=== PATIENT | male | born 1950 | race Caucasian/White ===

== ENCOUNTER 2017-09-27 11:11 | Inpatient (IN) | payer MEDICARE, OTHER ==
[2017-09-27] MEDS: morphine 4 MG/ML VIAL IM (13:18)
[2017-09-27] MEDS: ONDANSETRON (ODT) 4 MG TAB ODT (13:18)
[2017-09-27 13:23] LABS: ADD MAN DIFF? NO
[2017-09-27 13:27] LABS: WHITE BLOOD COUNT 4.6 10^3/ul (4.8-10.8)
[2017-09-27 13:27] LABS: BASOPHIL # 0.1 10^3/ul (0.0-0.1); BASOPHILS % 1.1 % (0.0-2.0); EOSINOPHILS # 0.1 10^3/ul (0.0-0.5); EOSINOPHILS % 1.8 % (0.0-7.0); HEMATOCRIT 34.5 % (42.0-52.0); HEMOGLOBIN 11.2 g/dl (14.0-18.0); LYMPHOCYTES # 0.9 10^3/ul (0.8-2.9); LYMPHOCYTES % 20.2 % (15.0-51.0); MEAN CORPUSCULAR HEMOGLOBIN 29.1 pg (29.0-33.0); MEAN CORPUSCULAR HGB CONC 32.5 g/dl (32.0-37.0); MEAN CORPUSCULAR VOLUME 89.6 fl (82.0-101.0); MONOCYTE # 0.5 10^3/ul (0.3-0.9); MONOCYTES % 11.4 % (0.0-11.0); NEUTROPHILS % 65.3 % (39.0-77.0); PLATELET COUNT 213 10^3/UL (140-415); RED BLOOD COUNT 3.85 10^6/ul (4.70-6.10); RED CELL DISTRIBUTION WIDTH 16.5 % (11.5-14.5)
[2017-09-27 13:47] LABS: ALANINE AMINOTRANSFERASE 57 IU/L (13-69); ALBUMIN 4.5 g/dl (3.3-4.9); ALBUMIN/GLOBULIN RATIO 1.07; ALKALINE PHOSPHATASE 168 IU/L (42-121); ANION GAP 22 (8-16); ASPARTATE AMINO TRANSFERASE 82 IU/L (15-46); BLOOD UREA NITROGEN 43 mg/dl (7-20); CALCIUM 8.9 mg/dl (8.4-10.2); CARBON DIOXIDE 24 mmol/L (21-31); CHLORIDE 90 mmol/L (97-110); CREATININE 8.32 mg/dl (0.61-1.24); GLUCOSE 54 mg/dl (70-220); SODIUM 130 mmol/L (135-144); TOTAL PROTEIN 8.7 g/dl (6.1-8.1)
[2017-09-27 13:59] LABS: INR 0.97
[2017-09-27 14:00] LABS: PARTIAL THROMBOPLASTIN TIME 34.5 Sec (25.0-35.0); TROPONIN-I 0.014 ng/ml (0.00-0.12)
[2017-09-27 14:01] LABS: POTASSIUM 6.1 mmol/L (3.5-5.1)
[2017-09-27] MEDS: ALBUTEROL 0.5% (NEB) 2.5 MG/0.5 ML AMP INH (14:14)
[2017-09-27] MEDS: NA BICARBONATE 8.4% 50 ML SYG IV (14:48)
[2017-09-27] MEDS: NA POLYST SULFON 15 GM/60 ML BTL PO (14:48)
[2017-09-27] MEDS: CA CHLORIDE 10% 10 ML SYRINGE IV (14:48)
[2017-09-27] MEDS: morphine 4 MG/ML VIAL IV ×2 (16:27→22:55)
[2017-09-27] MEDS: ONDANSETRON 4 MG INJ IV (16:27)
[2017-09-27] MEDS ORDERED: ACETAMINOPHEN 325 MG TAB PO (17:30)
[2017-09-27] MEDS ORDERED: ONDANSETRON 4 MG INJ IV (17:30)
[2017-09-27] MEDS: HYDROmorphONE 0.5 MG/0.5 ML SYG IV (20:05)
[2017-09-28] MEDS ORDERED: ONDANSETRON 4 MG INJ IV (03:30)
[2017-09-28] MEDS: morphine 4 MG/ML VIAL IV ×2 (06:18→14:52)
[2017-09-28 08:26] LABS: ADD MAN DIFF? NO
[2017-09-28 08:29] LABS: BASOPHIL # 0.1 10^3/ul (0.0-0.1); EOSINOPHILS # 0.2 10^3/ul (0.0-0.5); EOSINOPHILS % 3.6 % (0.0-7.0); HEMATOCRIT 34.1 % (42.0-52.0); HEMOGLOBIN 10.9 g/dl (14.0-18.0); LYMPHOCYTES # 0.7 10^3/ul (0.8-2.9); LYMPHOCYTES % 14.7 % (15.0-51.0); MEAN CORPUSCULAR HEMOGLOBIN 29.1 pg (29.0-33.0); MEAN CORPUSCULAR VOLUME 90.9 fl (82.0-101.0); MONOCYTE # 0.7 10^3/ul (0.3-0.9); MONOCYTES % 14.7 % (0.0-11.0); NEUTROPHIL # 3.1 10^3/ul (1.6-7.5); NEUTROPHILS % 65.8 % (39.0-77.0); PLATELET COUNT 241 10^3/UL (140-415); RED BLOOD COUNT 3.75 10^6/ul (4.70-6.10)
[2017-09-28 08:29] LABS: WHITE BLOOD COUNT 4.8 10^3/ul (4.8-10.8)
[2017-09-28 08:39] LABS: HEMOGLOBIN A1C 4.6 % (0-5.9)
[2017-09-28 09:01] LABS: ALANINE AMINOTRANSFERASE 53 IU/L (13-69); ALBUMIN 4.6 g/dl (3.3-4.9); ALBUMIN/GLOBULIN RATIO 1.31; ALKALINE PHOSPHATASE 152 IU/L (42-121); ANION GAP 21 (8-16); ASPARTATE AMINO TRANSFERASE 54 IU/L (15-46); BLOOD UREA NITROGEN 28 mg/dl (7-20); CALCIUM 8.9 mg/dl (8.4-10.2); CARBON DIOXIDE 27 mmol/L (21-31); CHLORIDE 97 mmol/L (97-110); CHOL/HDL RATIO 2.2 RATIO; CHOLESTEROL 143 mg/dl (100-200); CREATININE 6.19 mg/dl (0.61-1.24); GLUCOSE 79 mg/dl (70-220); HDL CHOLESTEROL 65 mg/dl (30-78); LDL CHOLESTEROL,CALCULATED 60 mg/dl; MAGNESIUM 2.5 mg/dl (1.7-2.5); PHOSPHORUS 6.4 mg/dl (2.5-4.9); POTASSIUM 4.9 mmol/L (3.5-5.1); SODIUM 140 mmol/L (135-144); TOTAL PROTEIN 8.1 g/dl (6.1-8.1); TRIGLYCERIDES 91 mg/dl (0-149)
[2017-09-28 09:01] LABS: TROPONIN-I 0.027 ng/ml (0.00-0.12)
[2017-09-28] MEDS: ASPIRIN 81 MG TAB PO (09:08)
[2017-09-28] MEDS: NIFEdipine (XL) 30 MG TAB PO (09:08)
[2017-09-28] MEDS: BENAZEPRIL 10 MG TAB PO (09:08)
[2017-09-28] MEDS: HEPARIN 5,000 UNIT/0.5 ML VIAL SC ×2 (09:19→20:16)
[2017-09-28] MEDS ORDERED: ACETAMINOPHEN 325 MG TAB PO (11:00)
[2017-09-28] MEDS: hydrALAzine 20 MG INJ IV ×2 (11:11→15:46)
[2017-09-28] MEDS ORDERED: BENAZEPRIL 10 MG TAB PO (12:30)
[2017-09-28] MEDS ORDERED: NIFEdipine (XL) 30 MG TAB PO (12:30)
[2017-09-28] MEDS: METOPROLOL 25 MG TAB PO ×2 (12:40→20:06)
[2017-09-28] MEDS ORDERED: morphine 2 MG INJ IV (17:30)
[2017-09-28] MEDS: LABETALOL HCL 20MG INJ IV (17:47)
[2017-09-28] MEDS: morphine 2 MG INJ IV (20:05)
[2017-09-28] MEDS: HYDROCODONE/APAP (5/325) TAB PO (23:01)
[2017-09-29] MEDS: morphine 2 MG INJ IV ×4 (00:03→20:52)
[2017-09-29] MEDS: hydrALAzine 20 MG INJ IV ×2 (00:57→13:25)
[2017-09-29] MEDS: LABETALOL HCL 20MG INJ IV (02:30)
[2017-09-29 06:36] LABS: ADD MAN DIFF? NO
[2017-09-29 06:43] LABS: WHITE BLOOD COUNT 5.1 10^3/ul (4.8-10.8)
[2017-09-29 06:43] LABS: BASOPHIL # 0.1 10^3/ul (0.0-0.1); BASOPHILS % 1.2 % (0.0-2.0); EOSINOPHILS # 0.2 10^3/ul (0.0-0.5); EOSINOPHILS % 4.5 % (0.0-7.0); HEMATOCRIT 32.7 % (42.0-52.0); HEMOGLOBIN 10.4 g/dl (14.0-18.0); LYMPHOCYTES # 0.9 10^3/ul (0.8-2.9); LYMPHOCYTES % 17.3 % (15.0-51.0); MEAN CORPUSCULAR HEMOGLOBIN 29.4 pg (29.0-33.0); MEAN CORPUSCULAR HGB CONC 31.8 g/dl (32.0-37.0); MEAN CORPUSCULAR VOLUME 92.4 fl (82.0-101.0); MEAN PLATELET VOLUME 9.2 fl (7.4-10.4); MONOCYTE # 0.7 10^3/ul (0.3-0.9); MONOCYTES % 13.6 % (0.0-11.0); NEUTROPHIL # 3.2 10^3/ul (1.6-7.5); PLATELET COUNT 219 10^3/UL (140-415); RED BLOOD COUNT 3.54 10^6/ul (4.70-6.10); RED CELL DISTRIBUTION WIDTH 17.1 % (11.5-14.5)
[2017-09-29 07:03] LABS: ANION GAP 22 (8-16); BLOOD UREA NITROGEN 43 mg/dl (7-20); CALCIUM 9.3 mg/dl (8.4-10.2); CARBON DIOXIDE 28 mmol/L (21-31); CHLORIDE 94 mmol/L (97-110); CREATININE 8.63 mg/dl (0.61-1.24); GLUCOSE 89 mg/dl (70-220); MAGNESIUM 2.4 mg/dl (1.7-2.5); POTASSIUM 4.9 mmol/L (3.5-5.1); SODIUM 139 mmol/L (135-144)
[2017-09-29] MEDS: METOPROLOL 25 MG TAB PO ×2 (08:11→20:51)
[2017-09-29] MEDS: BENAZEPRIL 10 MG TAB PO (08:12)
[2017-09-29] MEDS: ASPIRIN 81 MG TAB PO (08:12)
[2017-09-29] MEDS: NIFEdipine (XL) 30 MG TAB PO (08:12)
[2017-09-29] MEDS: HEPARIN 5,000 UNIT/0.5 ML VIAL SC ×2 (08:13→20:57)
[2017-09-29] MEDS ORDERED: BENAZEPRIL 10 MG TAB PO (09:00)
[2017-09-29] MEDS: BENAZEPRIL 40 MG TAB PO (10:18)
[2017-09-30] MEDS: hydrALAzine 20 MG INJ IV ×2 (00:41→14:01)
[2017-09-30 06:05] LABS: ADD MAN DIFF? NO
[2017-09-30 06:16] LABS: BASOPHILS % 0.6 % (0.0-2.0); EOSINOPHILS # 0.2 10^3/ul (0.0-0.5); EOSINOPHILS % 2.8 % (0.0-7.0); HEMOGLOBIN 10.4 g/dl (14.0-18.0); LYMPHOCYTES % 14.4 % (15.0-51.0); MEAN CORPUSCULAR HEMOGLOBIN 29.5 pg (29.0-33.0); MEAN CORPUSCULAR HGB CONC 32.5 g/dl (32.0-37.0); MEAN CORPUSCULAR VOLUME 90.9 fl (82.0-101.0); MEAN PLATELET VOLUME 9.9 fl (7.4-10.4); MONOCYTES % 14.2 % (0.0-11.0); NEUTROPHIL # 4.6 10^3/ul (1.6-7.5); NEUTROPHILS % 67.7 % (39.0-77.0); PLATELET COUNT 222 10^3/UL (140-415); RED BLOOD COUNT 3.52 10^6/ul (4.70-6.10); RED CELL DISTRIBUTION WIDTH 17.2 % (11.5-14.5)
[2017-09-30 06:16] LABS: WHITE BLOOD COUNT 6.8 10^3/ul (4.8-10.8)
[2017-09-30 08:04] LABS: ANION GAP 25 (8-16); BLOOD UREA NITROGEN 68 mg/dl (7-20); CALCIUM 9.4 mg/dl (8.4-10.2); CARBON DIOXIDE 22 mmol/L (21-31); CHLORIDE 93 mmol/L (97-110); CREATININE 10.28 mg/dl (0.61-1.24); GLUCOSE 53 mg/dl (70-220); MAGNESIUM 2.3 mg/dl (1.7-2.5); PHOSPHORUS 8.1 mg/dl (2.5-4.9); POTASSIUM 5.5 mmol/L (3.5-5.1); SODIUM 134 mmol/L (135-144)
[2017-09-30] MEDS: ASPIRIN 81 MG TAB PO (08:15)
[2017-09-30] MEDS: morphine 2 MG INJ IV ×3 (08:17→13:14)
[2017-09-30] MEDS: HEPARIN 5,000 UNIT/0.5 ML VIAL SC (08:21)
[2017-09-30] MEDS: NIFEdipine (XL) 30 MG TAB PO (09:00)
[2017-09-30] MEDS: MULTIVIT/CA CARB/B CMPLX/FA TAB PO (09:00)
[2017-09-30] MEDS: BENAZEPRIL 40 MG TAB PO (09:00)
[2017-09-30] MEDS: METOPROLOL 50 MG TAB PO (09:00)
[2017-09-30] MEDS: MUPIROCIN 2% 22 GM OINT TOP ×2 (11:00→13:06)
[2017-09-30] MEDS: SEVELAMER 800 MG TAB PO ×2 (11:50→13:06)
[2017-09-30] MEDS ORDERED: EPOETIN 4000 UNITS/1 ML INJ (ESRD) SC (17:00)
== END 2017-09-30 15:38 | disposition home or self-care (01) | DRG 313 ==
LOC: TEL 17:15 → E/R 11:11
PROC: 5A1D70Z Performance of Urinary Filtration, Intermittent, Less than 6 Hours Per Day (ICD-10-PCS; principal; 2017-09-27)
DX: R07.9 Chest pain, unspecified (principal); N18.6 End stage renal disease; E87.1 Hypo-osmolality and hyponatremia; J81.1 Chronic pulmonary edema; I12.0 Hypertensive chronic kidney disease with stage 5 chronic kidney disease or end stage renal disease; M25.512 Pain in left shoulder; I16.0 Hypertensive urgency; D63.1 Anemia in chronic kidney disease; E11.22 Type 2 diabetes mellitus with diabetic chronic kidney disease; E11.65 Type 2 diabetes mellitus with hyperglycemia; E87.5 Hyperkalemia; E87.70 Fluid overload, unspecified; Z99.2 Dependence on renal dialysis; Z87.891 Personal history of nicotine dependence; Z79.4 Long term (current) use of insulin
CPT/HCPCS: 71045; 73030; 80048; 80053; 80061; 82962; 83036; 83735; 84100; 84443; 84484; 85025; 85610; 85730; 87081; 90935; 93005; 93931; 94664; 96374; 96375; 96376; 99291-25

== ENCOUNTER 2017-10-08 19:03 | Inpatient (IN) | payer MEDICARE, OTHER ==
[2017-10-09 00:39] LABS: ADD MAN DIFF? NO
[2017-10-09 00:41] LABS: BASOPHILS % 0.6 % (0.0-2.0); EOSINOPHILS # 0.2 10^3/ul (0.0-0.5); EOSINOPHILS % 2.4 % (0.0-7.0); HEMATOCRIT 28.4 % (42.0-52.0); HEMOGLOBIN 9.3 g/dl (14.0-18.0); LYMPHOCYTES # 0.9 10^3/ul (0.8-2.9); LYMPHOCYTES % 13.5 % (15.0-51.0); MEAN CORPUSCULAR HEMOGLOBIN 29.4 pg (29.0-33.0); MEAN CORPUSCULAR HGB CONC 32.7 g/dl (32.0-37.0); MEAN CORPUSCULAR VOLUME 89.9 fl (82.0-101.0); MEAN PLATELET VOLUME 9.8 fl (7.4-10.4); MONOCYTE # 1.3 10^3/ul (0.3-0.9); MONOCYTES % 18.3 % (0.0-11.0); NEUTROPHIL # 4.5 10^3/ul (1.6-7.5); NEUTROPHILS % 64.9 % (39.0-77.0); PLATELET COUNT 237 10^3/UL (140-415); RED BLOOD COUNT 3.16 10^6/ul (4.70-6.10); RED CELL DISTRIBUTION WIDTH 16.1 % (11.5-14.5)
[2017-10-09 01:05] LABS: LACTIC ACID 0.7 mmol/L (0.5-2.0)
[2017-10-09 01:07] LABS: ALANINE AMINOTRANSFERASE 24 IU/L (13-69); ALBUMIN/GLOBULIN RATIO 1.29; ALKALINE PHOSPHATASE 116 IU/L (42-121); ANION GAP 23 (8-16); ASPARTATE AMINO TRANSFERASE 31 IU/L (15-46); BLOOD UREA NITROGEN 83 mg/dl (7-20); CARBON DIOXIDE 22 mmol/L (21-31); CHLORIDE 89 mmol/L (97-110); GLUCOSE 104 mg/dl (70-220); POTASSIUM 5.2 mmol/L (3.5-5.1); SODIUM 129 mmol/L (135-144); TOTAL PROTEIN 7.1 g/dl (6.1-8.1)
[2017-10-09 01:17] LABS: CREATININE 11.58 mg/dl (0.61-1.24); TROPONIN-I 0.028 ng/ml (0.00-0.12)
[2017-10-09 01:19] LABS: INR 1.16; PT RATIO 1.2
[2017-10-09 01:20] LABS: PARTIAL THROMBOPLASTIN TIME 39.3 Sec (25.0-35.0)
[2017-10-09] MEDS: SODIUM CHLORIDE 1 GM TAB PO (02:22)
[2017-10-09] MEDS ORDERED: NACL 0.9% 3 ML SYG IV (02:30)
[2017-10-09] MEDS ORDERED: ALBUTEROL/IPRATROPIUM (NEB) 3 ML AMP HHN (02:30)
[2017-10-09] MEDS ORDERED: ONDANSETRON 4 MG INJ IV (02:30)
[2017-10-09] MEDS ORDERED: VANCOMYCIN IV PER PHARMACY XX (02:30)
[2017-10-09 02:56] LABS: LACTIC ACID 0.7 mmol/L (0.5-2.0)
[2017-10-09] MEDS: NIFEdipine (XL) 30 MG TAB PO ×2 (03:30→08:55)
[2017-10-09] MEDS: METOPROLOL 50 MG TAB PO ×3 (03:30→21:00)
[2017-10-09] MEDS: VANCOMYCIN 2 GM in SOD CHLORIDE 0.9% 500 ML IVPB (05:18)
[2017-10-09] MEDS: morphine 2 MG INJ IV (06:03)
[2017-10-09 06:54] LABS: ADD MAN DIFF? NO
[2017-10-09 07:00] LABS: WHITE BLOOD COUNT 5.8 10^3/ul (4.8-10.8)
[2017-10-09 07:00] LABS: BASOPHILS % 0.7 % (0.0-2.0); EOSINOPHILS # 0.2 10^3/ul (0.0-0.5); EOSINOPHILS % 3.3 % (0.0-7.0); HEMATOCRIT 27.4 % (42.0-52.0); LYMPHOCYTES % 16.8 % (15.0-51.0); MEAN CORPUSCULAR HEMOGLOBIN 29.7 pg (29.0-33.0); MEAN CORPUSCULAR HGB CONC 32.8 g/dl (32.0-37.0); MEAN CORPUSCULAR VOLUME 90.4 fl (82.0-101.0); MEAN PLATELET VOLUME 10.7 fl (7.4-10.4); MONOCYTES % 17.6 % (0.0-11.0); NEUTROPHIL # 3.5 10^3/ul (1.6-7.5); NEUTROPHILS % 61.3 % (39.0-77.0); PLATELET COUNT 224 10^3/UL (140-415); RED BLOOD COUNT 3.03 10^6/ul (4.70-6.10); RED CELL DISTRIBUTION WIDTH 16.2 % (11.5-14.5)
[2017-10-09 07:15] LABS: LACTIC ACID 0.7 mmol/L (0.5-2.0)
[2017-10-09 07:21] LABS: IRON 38 ug/dl (35-150)
[2017-10-09 07:32] LABS: % IRON SATURATION 22 % SAT (22-52); TOTAL IRON BINDING CAPACITY 173 ug/dl (241-421)
[2017-10-09] MEDS ORDERED: PENDING SANTYL ORDER FOR WOUND CARE XX (08:00)
[2017-10-09 08:35] LABS: ANION GAP 21 (8-16); BLOOD UREA NITROGEN 83 mg/dl (7-20); CALCIUM 9.2 mg/dl (8.4-10.2); CARBON DIOXIDE 24 mmol/L (21-31); CHLORIDE 91 mmol/L (97-110); GLUCOSE 102 mg/dl (70-220); MAGNESIUM 2.5 mg/dl (1.7-2.5); PHOSPHORUS 6.8 mg/dl (2.5-4.9); POTASSIUM 5.4 mmol/L (3.5-5.1); SODIUM 131 mmol/L (135-144)
[2017-10-09 08:49] LABS: CREATININE 11.81 mg/dl (0.61-1.24)
[2017-10-09] MEDS: HEPARIN 5,000 UNIT/0.5 ML VIAL SC ×2 (08:55→21:00)
[2017-10-09] MEDS: traMADol 50 MG TAB PO (08:55)
[2017-10-09] MEDS: MULTIVIT/CA CARB/B CMPLX/FA TAB PO (08:56)
[2017-10-09] MEDS: BENAZEPRIL 40 MG TAB PO (08:56)
[2017-10-09] MEDS: SEVELAMER 800 MG TAB PO ×3 (09:00→17:46)
[2017-10-09] MEDS: EPOETIN 4000 UNITS/1 ML INJ (ESRD) SC (18:51)
[2017-10-09] MEDS: LACTOBACILLUS RHAMNOSUS CAP PO (21:00)
[2017-10-10] MEDS: LACTOBACILLUS RHAMNOSUS CAP PO ×3 (00:43→20:52)
[2017-10-10] MEDS: OXYMETAZOLINE 0.05% 15 ML NAS SPRAY NASAL ×3 (00:43→20:53)
[2017-10-10] MEDS: METOPROLOL 50 MG TAB PO ×3 (00:47→20:53)
[2017-10-10] MEDS: HEPARIN 5,000 UNIT/0.5 ML VIAL SC ×3 (00:51→20:56)
[2017-10-10 06:32] LABS: ADD MAN DIFF? NO
[2017-10-10 06:38] LABS: BASOPHIL # 0.1 10^3/ul (0.0-0.1); EOSINOPHILS # 0.2 10^3/ul (0.0-0.5); EOSINOPHILS % 4.3 % (0.0-7.0); HEMATOCRIT 27.2 % (42.0-52.0); LYMPHOCYTES # 0.8 10^3/ul (0.8-2.9); LYMPHOCYTES % 15.5 % (15.0-51.0); MEAN CORPUSCULAR HEMOGLOBIN 29.4 pg (29.0-33.0); MEAN CORPUSCULAR HGB CONC 33.1 g/dl (32.0-37.0); MEAN CORPUSCULAR VOLUME 88.9 fl (82.0-101.0); MEAN PLATELET VOLUME 10.6 fl (7.4-10.4); MONOCYTE # 0.7 10^3/ul (0.3-0.9); MONOCYTES % 14.3 % (0.0-11.0); NEUTROPHIL # 3.3 10^3/ul (1.6-7.5); NEUTROPHILS % 64.7 % (39.0-77.0); PLATELET COUNT 245 10^3/UL (140-415); RED BLOOD COUNT 3.06 10^6/ul (4.70-6.10); RED CELL DISTRIBUTION WIDTH 16.1 % (11.5-14.5)
[2017-10-10 06:38] LABS: WHITE BLOOD COUNT 5.1 10^3/ul (4.8-10.8)
[2017-10-10 06:56] LABS: URIC ACID 4.4 mg/dl (3.1-7.9)
[2017-10-10 07:06] LABS: ALANINE AMINOTRANSFERASE 26 IU/L (13-69); ALBUMIN 3.5 g/dl (3.3-4.9); ALBUMIN/GLOBULIN RATIO 0.87; ALKALINE PHOSPHATASE 112 IU/L (42-121); ANION GAP 19 (8-16); ASPARTATE AMINO TRANSFERASE 26 IU/L (15-46); BLOOD UREA NITROGEN 52 mg/dl (7-20); CARBON DIOXIDE 25 mmol/L (21-31); CHLORIDE 96 mmol/L (97-110); CREATININE 8.99 mg/dl (0.61-1.24); GLUCOSE 91 mg/dl (70-220); MAGNESIUM 2.2 mg/dl (1.7-2.5); PHOSPHORUS 5.3 mg/dl (2.5-4.9); POTASSIUM 4.5 mmol/L (3.5-5.1); SODIUM 135 mmol/L (135-144); TOTAL PROTEIN 7.5 g/dl (6.1-8.1)
[2017-10-10 07:36] LABS: HEPATITIS B SURFACE ANTIGEN NEGATIVE (NEGATIVE)
[2017-10-10 07:47] LABS: HEMOGLOBIN A1C 4.7 % (0-5.9)
[2017-10-10] MEDS: MULTIVIT/CA CARB/B CMPLX/FA TAB PO (08:30)
[2017-10-10] MEDS: BENAZEPRIL 40 MG TAB PO (08:31)
[2017-10-10] MEDS: SEVELAMER 800 MG TAB PO ×3 (08:31→19:09)
[2017-10-10] MEDS: NIFEdipine (XL) 30 MG TAB PO (08:31)
[2017-10-10 09:09] LABS: HEPATITIS B SURFACE ANTIBODY NEGATIVE (NEGATIVE)
[2017-10-10] MEDS: hydrALAzine 20 MG INJ IV (13:53)
[2017-10-10] MEDS: traMADol 50 MG TAB PO (19:09)
[2017-10-11] MEDS: traMADol 50 MG TAB PO (01:23)
[2017-10-11 05:47] LABS: ADD MAN DIFF? NO
[2017-10-11 05:51] LABS: BASOPHIL # 0.1 10^3/ul (0.0-0.1); BASOPHILS % 0.9 % (0.0-2.0); EOSINOPHILS # 0.2 10^3/ul (0.0-0.5); HEMATOCRIT 26.6 % (42.0-52.0); HEMOGLOBIN 8.7 g/dl (14.0-18.0); LYMPHOCYTES # 0.8 10^3/ul (0.8-2.9); LYMPHOCYTES % 14.4 % (15.0-51.0); MEAN CORPUSCULAR HEMOGLOBIN 28.9 pg (29.0-33.0); MEAN CORPUSCULAR HGB CONC 32.7 g/dl (32.0-37.0); MEAN CORPUSCULAR VOLUME 88.4 fl (82.0-101.0); MEAN PLATELET VOLUME 10.2 fl (7.4-10.4); MONOCYTE # 0.8 10^3/ul (0.3-0.9); MONOCYTES % 15.3 % (0.0-11.0); NEUTROPHIL # 3.5 10^3/ul (1.6-7.5); NEUTROPHILS % 66.2 % (39.0-77.0); PLATELET COUNT 251 10^3/UL (140-415); RED BLOOD COUNT 3.01 10^6/ul (4.70-6.10); RED CELL DISTRIBUTION WIDTH 16.1 % (11.5-14.5)
[2017-10-11 05:51] LABS: WHITE BLOOD COUNT 5.3 10^3/ul (4.8-10.8)
[2017-10-11 06:12] LABS: ANION GAP 18 (8-16); BLOOD UREA NITROGEN 43 mg/dl (7-20); CALCIUM 9.1 mg/dl (8.4-10.2); CARBON DIOXIDE 27 mmol/L (21-31); CHLORIDE 98 mmol/L (97-110); CREATININE 7.19 mg/dl (0.61-1.24); GLUCOSE 140 mg/dl (70-220); MAGNESIUM 2.2 mg/dl (1.7-2.5); PHOSPHORUS 3.8 mg/dl (2.5-4.9); POTASSIUM 3.7 mmol/L (3.5-5.1); SODIUM 139 mmol/L (135-144)
[2017-10-11 06:15] LABS: VANCOMYCIN,RANDOM 10.7 ug/ml
[2017-10-11] MEDS: hydrALAzine 20 MG INJ IV ×2 (07:41→22:44)
[2017-10-11] MEDS: LACTOBACILLUS RHAMNOSUS CAP PO ×2 (09:04→20:59)
[2017-10-11] MEDS: MULTIVIT/CA CARB/B CMPLX/FA TAB PO (09:04)
[2017-10-11] MEDS: SEVELAMER 800 MG TAB PO ×3 (09:04→17:48)
[2017-10-11] MEDS: HEPARIN 5,000 UNIT/0.5 ML VIAL SC ×2 (09:04→21:05)
[2017-10-11] MEDS: OXYMETAZOLINE 0.05% 15 ML NAS SPRAY NASAL ×2 (09:04→21:00)
[2017-10-11] MEDS: NIFEdipine (XL) 30 MG TAB PO (09:05)
[2017-10-11] MEDS: METOPROLOL 50 MG TAB PO ×2 (09:06→20:59)
[2017-10-11] MEDS: BENAZEPRIL 40 MG TAB PO (09:06)
[2017-10-11] MEDS: VANCOMYCIN 1.25 GM in SOD CHLORIDE 0.9% 250 ML IVPB (12:16)
[2017-10-11] MEDS: EPOETIN 4000 UNITS/1 ML INJ (ESRD) SC (17:58)
[2017-10-12] MEDS: hydrALAzine 20 MG INJ IV ×2 (06:14→15:58)
[2017-10-12] MEDS: MULTIVIT/CA CARB/B CMPLX/FA TAB PO (08:44)
[2017-10-12] MEDS: LACTOBACILLUS RHAMNOSUS CAP PO ×2 (08:44→20:06)
[2017-10-12] MEDS: METOPROLOL 50 MG TAB PO ×2 (08:45→20:06)
[2017-10-12] MEDS: NIFEdipine (XL) 30 MG TAB PO (08:45)
[2017-10-12] MEDS: OXYMETAZOLINE 0.05% 15 ML NAS SPRAY NASAL ×2 (08:45→20:06)
[2017-10-12] MEDS: BENAZEPRIL 40 MG TAB PO (08:46)
[2017-10-12] MEDS: ACETAMINOPHEN 325 MG TAB PO (08:56)
[2017-10-12] MEDS: SEVELAMER 800 MG TAB PO ×3 (08:56→17:41)
[2017-10-12] MEDS: HEPARIN 5,000 UNIT/0.5 ML VIAL SC ×2 (09:00→20:12)
[2017-10-13] MEDS: ACETAMINOPHEN 325 MG TAB PO ×2 (01:10→11:20)
[2017-10-13] MEDS: SEVELAMER 800 MG TAB PO ×3 (08:07→17:38)
[2017-10-13] MEDS: LACTOBACILLUS RHAMNOSUS CAP PO ×2 (08:07→20:48)
[2017-10-13] MEDS: MULTIVIT/CA CARB/B CMPLX/FA TAB PO (08:07)
[2017-10-13] MEDS: BENAZEPRIL 40 MG TAB PO (08:07)
[2017-10-13] MEDS: OXYMETAZOLINE 0.05% 15 ML NAS SPRAY NASAL ×2 (08:08→21:00)
[2017-10-13] MEDS: METOPROLOL 50 MG TAB PO ×2 (08:08→20:48)
[2017-10-13] MEDS: NIFEdipine (XL) 30 MG TAB PO (08:09)
[2017-10-13] MEDS: HEPARIN 5,000 UNIT/0.5 ML VIAL SC ×2 (08:31→20:53)
[2017-10-14] MEDS: traMADol 50 MG TAB PO (05:02)
[2017-10-14 05:37] LABS: ADD MAN DIFF? NO
[2017-10-14 05:46] LABS: WHITE BLOOD COUNT 6.9 10^3/ul (4.8-10.8)
[2017-10-14 05:46] LABS: BASOPHIL # 0.1 10^3/ul (0.0-0.1); BASOPHILS % 1.2 % (0.0-2.0); EOSINOPHILS # 0.3 10^3/ul (0.0-0.5); EOSINOPHILS % 4.7 % (0.0-7.0); HEMATOCRIT 29.6 % (42.0-52.0); HEMOGLOBIN 9.4 g/dl (14.0-18.0); LYMPHOCYTES # 1.2 10^3/ul (0.8-2.9); LYMPHOCYTES % 17.8 % (15.0-51.0); MEAN CORPUSCULAR HEMOGLOBIN 28.9 pg (29.0-33.0); MEAN CORPUSCULAR HGB CONC 31.8 g/dl (32.0-37.0); MEAN CORPUSCULAR VOLUME 91.1 fl (82.0-101.0); MEAN PLATELET VOLUME 9.4 fl (7.4-10.4); MONOCYTE # 0.7 10^3/ul (0.3-0.9); MONOCYTES % 10.6 % (0.0-11.0); NEUTROPHIL # 4.5 10^3/ul (1.6-7.5); NEUTROPHILS % 65.4 % (39.0-77.0); PLATELET COUNT 272 10^3/UL (140-415); RED BLOOD COUNT 3.25 10^6/ul (4.70-6.10); RED CELL DISTRIBUTION WIDTH 16.5 % (11.5-14.5)
[2017-10-14 06:23] LABS: ANION GAP 16 (8-16); BLOOD UREA NITROGEN 56 mg/dl (7-20); CALCIUM 9.9 mg/dl (8.4-10.2); CARBON DIOXIDE 24 mmol/L (21-31); CHLORIDE 101 mmol/L (97-110); CREATININE 9.91 mg/dl (0.61-1.24); GLUCOSE 95 mg/dl (70-220); MAGNESIUM 2.4 mg/dl (1.7-2.5); PHOSPHORUS 4.2 mg/dl (2.5-4.9); POTASSIUM 4.4 mmol/L (3.5-5.1); SODIUM 137 mmol/L (135-144)
[2017-10-14 06:25] LABS: VANCOMYCIN,RANDOM 16.3 ug/ml
[2017-10-14] MEDS: LACTOBACILLUS RHAMNOSUS CAP PO ×2 (08:59→21:00)
[2017-10-14] MEDS: OXYMETAZOLINE 0.05% 15 ML NAS SPRAY NASAL ×2 (08:59→21:02)
[2017-10-14] MEDS: SEVELAMER 800 MG TAB PO ×3 (09:01→18:14)
[2017-10-14] MEDS: MULTIVIT/CA CARB/B CMPLX/FA TAB PO (09:01)
[2017-10-14] MEDS: METOPROLOL 50 MG TAB PO ×2 (09:01→21:02)
[2017-10-14] MEDS: HEPARIN 5,000 UNIT/0.5 ML VIAL SC ×2 (09:03→21:05)
[2017-10-14] MEDS: NIFEdipine (XL) 30 MG TAB PO (12:26)
[2017-10-14] MEDS: BENAZEPRIL 40 MG TAB PO (13:42)
[2017-10-14] MEDS: hydrALAzine 20 MG INJ IV (14:41)
[2017-10-14] MEDS: VANCOMYCIN 1 GM 250 ML IVPB (18:14)
[2017-10-14] MEDS: EPOETIN 4000 UNITS/1 ML INJ (ESRD) SC (18:16)
[2017-10-15] MEDS: HEPARIN 5,000 UNIT/0.5 ML VIAL SC ×2 (08:59→20:46)
[2017-10-15] MEDS: SEVELAMER 800 MG TAB PO ×3 (09:01→18:16)
[2017-10-15] MEDS: MULTIVIT/CA CARB/B CMPLX/FA TAB PO (09:01)
[2017-10-15] MEDS: LACTOBACILLUS RHAMNOSUS CAP PO ×2 (09:01→20:43)
[2017-10-15] MEDS: NIFEdipine (XL) 30 MG TAB PO (09:02)
[2017-10-15] MEDS: BENAZEPRIL 40 MG TAB PO (09:03)
[2017-10-15] MEDS: METOPROLOL 50 MG TAB PO ×2 (09:03→20:44)
[2017-10-15] MEDS: OXYMETAZOLINE 0.05% 15 ML NAS SPRAY NASAL ×2 (09:06→20:44)
[2017-10-15] MEDS: ACETAMINOPHEN 325 MG TAB PO (20:51)
[2017-10-16] MEDS: hydrALAzine 20 MG INJ IV (02:35)
[2017-10-16 07:12] LABS: HEMOGLOBIN 9.1 g/dl (14.0-18.0)
[2017-10-16 07:12] LABS: HEMATOCRIT 28.9 % (42.0-52.0)
[2017-10-16] MEDS: LACTOBACILLUS RHAMNOSUS CAP PO (08:19)
[2017-10-16] MEDS: MULTIVIT/CA CARB/B CMPLX/FA TAB PO (08:19)
[2017-10-16] MEDS: SEVELAMER 800 MG TAB PO ×2 (08:19→12:04)
[2017-10-16] MEDS: OXYMETAZOLINE 0.05% 15 ML NAS SPRAY NASAL (08:21)
[2017-10-16] MEDS: HEPARIN 5,000 UNIT/0.5 ML VIAL SC (08:21)
[2017-10-16] MEDS: BENAZEPRIL 40 MG TAB PO (08:31)
[2017-10-16] MEDS: NIFEdipine (XL) 30 MG TAB PO (08:31)
[2017-10-16] MEDS: METOPROLOL 50 MG TAB PO (08:31)
[2017-10-18] MEDS ORDERED: VANCOMYCIN 1 GM 250 ML IVPB (17:00)
== END 2017-10-16 16:30 | DRG 871 ==
LOC: E/R 19:03 → MS2 10-14 09:39
PROC: 5A1D70Z Performance of Urinary Filtration, Intermittent, Less than 6 Hours Per Day (ICD-10-PCS; principal; 2017-10-11)
DX: A41.9 Sepsis, unspecified organism (principal); N18.6 End stage renal disease; S82.001A Unspecified fracture of right patella, initial encounter for closed fracture; L03.116 Cellulitis of left lower limb; I13.2 Hypertensive heart and chronic kidney disease with heart failure and with stage 5 chronic kidney disease, or end stage renal disease; E87.1 Hypo-osmolality and hyponatremia; E11.52 Type 2 diabetes mellitus with diabetic peripheral angiopathy with gangrene; I96 Gangrene, not elsewhere classified; L03.115 Cellulitis of right lower limb; E11.42 Type 2 diabetes mellitus with diabetic polyneuropathy; E11.22 Type 2 diabetes mellitus with diabetic chronic kidney disease; E11.610 Type 2 diabetes mellitus with diabetic neuropathic arthropathy; Z99.2 Dependence on renal dialysis; I50.9 Heart failure, unspecified; I16.0 Hypertensive urgency; D63.1 Anemia in chronic kidney disease; B95.62 Methicillin resistant Staphylococcus aureus infection as the cause of diseases classified elsewhere; R29.6 Repeated falls; E11.621 Type 2 diabetes mellitus with foot ulcer; L89.899 Pressure ulcer of other site, unspecified stage; L97.521 Non-pressure chronic ulcer of other part of left foot limited to breakdown of skin; I87.8 Other specified disorders of veins; E87.5 Hyperkalemia; Z83.3 Family history of diabetes mellitus; Z82.49 Family history of ischemic heart disease and other diseases of the circulatory system; Z89.422 Acquired absence of other left toe(s); Z87.891 Personal history of nicotine dependence; X58.XXXA Exposure to other specified factors, initial encounter
CPT/HCPCS: 36415; 71045; 73560; 73718; 80048; 80053; 80202; 82728; 83036; 83540; 83605; 83735; 84100; 84443; 84484; 84560; 85014; 85018; 85025; 85610; 85730; 86706; 87040; 87070; 87081; 87340; 90935; 93005; 93922; 93931; 97110; 97163; 97530; 99285-25

== ENCOUNTER 2018-01-20 09:37 | Inpatient (IN) | payer MEDICARE, OTHER ==
[2018-01-20] MEDS: morphine 4 MG/ML VIAL IM (10:47)
[2018-01-20] MEDS: ONDANSETRON 4 MG TAB PO (10:47)
[2018-01-20] MEDS: DEXAMETHASONE 10 MG/ML 1 ML INJ IM (10:47)
[2018-01-20 11:09] LABS: ADD MAN DIFF? NO
[2018-01-20 11:12] LABS: BASOPHIL # 0.1 10^3/ul (0.0-0.1); BASOPHILS % 1.4 % (0.0-2.0); EOSINOPHILS # 0.2 10^3/ul (0.0-0.5); EOSINOPHILS % 3.7 % (0.0-7.0); HEMATOCRIT 42.6 % (42.0-52.0); HEMOGLOBIN 13.1 g/dl (14.0-18.0); LYMPHOCYTES # 1.2 10^3/ul (0.8-2.9); LYMPHOCYTES % 18.9 % (15.0-51.0); MEAN CORPUSCULAR HEMOGLOBIN 27.2 pg (29.0-33.0); MEAN CORPUSCULAR HGB CONC 30.8 g/dl (32.0-37.0); MEAN CORPUSCULAR VOLUME 88.4 fl (82.0-101.0); MONOCYTE # 0.5 10^3/ul (0.3-0.9); MONOCYTES % 7.1 % (0.0-11.0); NEUTROPHIL # 4.5 10^3/ul (1.6-7.5); NEUTROPHILS % 68.7 % (39.0-77.0); PLATELET COUNT 271 10^3/UL (140-415); RED BLOOD COUNT 4.82 10^6/ul (4.70-6.10); RED CELL DISTRIBUTION WIDTH 17.4 % (11.5-14.5)
[2018-01-20 11:12] LABS: WHITE BLOOD COUNT 6.5 10^3/ul (4.8-10.8)
[2018-01-20 11:59] LABS: ALANINE AMINOTRANSFERASE 42 IU/L (13-69); ALBUMIN 4.9 g/dl (3.3-4.9); ALBUMIN/GLOBULIN RATIO 1.08; ALKALINE PHOSPHATASE 222 IU/L (42-121); ANION GAP 23 (8-16); ASPARTATE AMINO TRANSFERASE 54 IU/L (15-46); BILIRUBIN,INDIRECT 0.2 mg/dl (0-1.1); BILIRUBIN,TOTAL 0.2 mg/dl (0.2-1.3); BLOOD UREA NITROGEN 71 mg/dl (7-20); CALCIUM 10.8 mg/dl (8.4-10.2); CARBON DIOXIDE 28 mmol/L (21-31); CHLORIDE 93 mmol/L (97-110); GLUCOSE 68 mg/dl (70-220); SODIUM 136 mmol/L (135-144); TOTAL PROTEIN 9.4 g/dl (6.1-8.1)
[2018-01-20] MEDS: SODIUM BICARBONATE (IV ADD) 100 MEQ in DEXTROSE 5% 900 ML IV (12:59)
[2018-01-20] MEDS: CA CHLORIDE 10% 10 ML SYRINGE IV (13:28)
[2018-01-20] MEDS: NA BICARBONATE 8.4% 50 ML SYG IV (13:28)
[2018-01-20] MEDS: DEXTROSE 50% 50 ML SYRINGE IV (13:28)
[2018-01-20] MEDS: NA POLYST SULFON 15 GM/60 ML BTL PO (13:29)
[2018-01-20] MEDS: INSULIN REGULAR, HUMAN 100 UNIT/1 ML 3ML VIAL IVP (13:43)
[2018-01-20] MEDS ORDERED: ONDANSETRON 4 MG INJ IV (14:30)
[2018-01-20] MEDS ORDERED: ACETAMINOPHEN 325 MG TAB PO (14:30)
[2018-01-20 15:57] LABS: HEPATITIS B SURFACE ANTIGEN NEGATIVE (NEGATIVE)
[2018-01-20] MEDS ORDERED: GLUCOSE GEL 15 GRAM TUBE BUCCAL (18:00)
[2018-01-20] MEDS ORDERED: NON-FORMULARY/PATIENT OWN MED (Clonidine Patch 1 PATCH.WK) TD (18:00)
[2018-01-20] MEDS ORDERED: DEXTROSE 50% 50 ML SYRINGE IV ×2 (18:00)
[2018-01-20] MEDS ORDERED: GLUCAGON 1 MG INJ IM (18:00)
[2018-01-20] MEDS ORDERED: GLUCOSE GEL 15 GRAM TUBE PO ×2 (18:00)
[2018-01-20] MEDS: SEVELAMER 800 MG TAB PO ×2 (18:05→18:46)
[2018-01-20] MEDS: INSULIN ASPART [NOVOLOG] 3 ML PEN SC ×2 (18:48→21:00)
[2018-01-20 22:23] LABS: HEPATITIS B SURFACE ANTIBODY NEGATIVE (NEGATIVE)
[2018-01-20] MEDS: METOPROLOL 25 MG TAB PO (22:37)
[2018-01-21] MEDS: TIZANIDINE 2 MG TAB PO (00:25)
[2018-01-21] MEDS: ACCU-CHEK XX (02:00)
[2018-01-21] MEDS: SEVELAMER 800 MG TAB PO ×3 (07:48→17:24)
[2018-01-21 07:55] LABS: ADD MAN DIFF? NO
[2018-01-21] MEDS: INSULIN ASPART [NOVOLOG] 3 ML PEN SC ×4 (07:57→20:35)
[2018-01-21] MEDS: MULTIVIT/CA CARB/B CMPLX/FA TAB PO (08:27)
[2018-01-21] MEDS: AMLODIPINE 10 MG TAB PO (08:27)
[2018-01-21] MEDS: LISINOPRIL 10 MG TAB PO (08:27)
[2018-01-21] MEDS: METOPROLOL 25 MG TAB PO ×2 (08:28→20:30)
[2018-01-21] MEDS: LABETALOL 100 MG TAB PO (08:29)
[2018-01-21 08:38] LABS: ANION GAP 16 (8-16); BLOOD UREA NITROGEN 35 mg/dl (7-20); CALCIUM 10.2 mg/dl (8.4-10.2); CARBON DIOXIDE 31 mmol/L (21-31); CHLORIDE 97 mmol/L (97-110); CREATININE 6.44 mg/dl (0.61-1.24); GLUCOSE 110 mg/dl (70-220); MAGNESIUM 3.7 mg/dl (1.7-2.5); PHOSPHORUS 5.3 mg/dl (2.5-4.9); POTASSIUM 5.3 mmol/L (3.5-5.1); SODIUM 139 mmol/L (135-144)
[2018-01-21 09:57] LABS: WHITE BLOOD COUNT 8.4 10^3/ul (4.8-10.8)
[2018-01-21 09:57] LABS: BASOPHILS % 0.4 % (0.0-2.0); EOSINOPHILS % 0.5 % (0.0-7.0); HEMATOCRIT 39.8 % (42.0-52.0); HEMOGLOBIN 12.3 g/dl (14.0-18.0); MEAN CORPUSCULAR HEMOGLOBIN 27.3 pg (29.0-33.0); MEAN CORPUSCULAR HGB CONC 30.9 g/dl (32.0-37.0); MEAN CORPUSCULAR VOLUME 88.4 fl (82.0-101.0); MONOCYTE # 0.8 10^3/ul (0.3-0.9); MONOCYTES % 9.8 % (0.0-11.0); NEUTROPHIL # 6.5 10^3/ul (1.6-7.5); NEUTROPHILS % 77.1 % (39.0-77.0); PLATELET COUNT 237 10^3/UL (140-415); RED CELL DISTRIBUTION WIDTH 17.2 % (11.5-14.5)
[2018-01-21 10:26] LABS: HEMOGLOBIN A1C 5.1 % (0-5.9)
[2018-01-21] MEDS: morphine 2 MG INJ IV (20:31)
[2018-01-22] MEDS: ACCU-CHEK XX (02:00)
[2018-01-22 06:41] LABS: ADD MAN DIFF? NO
[2018-01-22 06:46] LABS: WHITE BLOOD COUNT 7.3 10^3/ul (4.8-10.8)
[2018-01-22 06:46] LABS: BASOPHIL # 0.1 10^3/ul (0.0-0.1); BASOPHILS % 0.7 % (0.0-2.0); EOSINOPHILS # 0.3 10^3/ul (0.0-0.5); EOSINOPHILS % 4.1 % (0.0-7.0); HEMATOCRIT 40.5 % (42.0-52.0); HEMOGLOBIN 12.3 g/dl (14.0-18.0); LYMPHOCYTES # 1.8 10^3/ul (0.8-2.9); LYMPHOCYTES % 24.1 % (15.0-51.0); MEAN CORPUSCULAR HEMOGLOBIN 26.6 pg (29.0-33.0); MEAN CORPUSCULAR HGB CONC 30.4 g/dl (32.0-37.0); MEAN CORPUSCULAR VOLUME 87.5 fl (82.0-101.0); MEAN PLATELET VOLUME 10.4 fl (7.4-10.4); MONOCYTE # 0.7 10^3/ul (0.3-0.9); NEUTROPHIL # 4.4 10^3/ul (1.6-7.5); NEUTROPHILS % 60.8 % (39.0-77.0); PLATELET COUNT 230 10^3/UL (140-415); RED BLOOD COUNT 4.63 10^6/ul (4.70-6.10); RED CELL DISTRIBUTION WIDTH 17.9 % (11.5-14.5)
[2018-01-22 07:12] LABS: ANION GAP 16 (8-16); BLOOD UREA NITROGEN 35 mg/dl (7-20); CALCIUM 10.4 mg/dl (8.4-10.2); CARBON DIOXIDE 30 mmol/L (21-31); CHLORIDE 98 mmol/L (97-110); CREATININE 5.52 mg/dl (0.61-1.24); GLUCOSE 96 mg/dl (70-220); MAGNESIUM 3.3 mg/dl (1.7-2.5); PHOSPHORUS 5.2 mg/dl (2.5-4.9); POTASSIUM 4.7 mmol/L (3.5-5.1); SODIUM 139 mmol/L (135-144)
[2018-01-22] MEDS: INSULIN ASPART [NOVOLOG] 3 ML PEN SC ×4 (08:00→20:50)
[2018-01-22] MEDS: AMLODIPINE 10 MG TAB PO (08:42)
[2018-01-22] MEDS: MULTIVIT/CA CARB/B CMPLX/FA TAB PO (08:42)
[2018-01-22] MEDS: SEVELAMER CARBONATE 800 MG TABLET PO ×3 (08:42→18:32)
[2018-01-22] MEDS: METOPROLOL 25 MG TAB PO ×2 (08:43→20:44)
[2018-01-22] MEDS: LABETALOL 100 MG TAB PO (08:43)
[2018-01-22] MEDS: LISINOPRIL 10 MG TAB PO (08:43)
[2018-01-22] MEDS: morphine LIQ (10 MG/5 ML) CUP PO (09:00)
[2018-01-22] MEDS: morphine 2 MG INJ IV (17:28)
[2018-01-23] MEDS: ACCU-CHEK XX (02:00)
[2018-01-23] MEDS: INSULIN ASPART [NOVOLOG] 3 ML PEN SC ×4 (08:00→21:00)
[2018-01-23] MEDS: AMLODIPINE 10 MG TAB PO (08:30)
[2018-01-23] MEDS: LABETALOL 100 MG TAB PO (08:30)
[2018-01-23] MEDS: SEVELAMER CARBONATE 800 MG TABLET PO ×3 (08:30→16:58)
[2018-01-23] MEDS: LISINOPRIL 10 MG TAB PO (08:30)
[2018-01-23] MEDS: MULTIVIT/CA CARB/B CMPLX/FA TAB PO (08:30)
[2018-01-23] MEDS: METOPROLOL 25 MG TAB PO ×2 (08:31→21:40)
[2018-01-23] MEDS: POLYETHYLENE GLYCOL 17 GM PACKET PO (08:36)
[2018-01-23] MEDS: morphine 2 MG INJ IV ×2 (10:43→21:40)
[2018-01-23 15:48] LABS: INR 0.84; PROTIME 11.6 Sec (11.9-14.9); PT RATIO 0.9
[2018-01-23 15:49] LABS: PARTIAL THROMBOPLASTIN TIME 31.8 Sec (25.0-35.0)
[2018-01-23] MEDS: SENNA TAB PO (16:58)
[2018-01-24] MEDS: ACCU-CHEK XX (02:00)
[2018-01-24] MEDS ORDERED: IOHEXOL 300MG/ML 30 ML BTL (07:01)
[2018-01-24] MEDS ORDERED: MIDAZOLAM 1 MG/ML 2 ML INJ (07:46)
[2018-01-24] MEDS ORDERED: PROPOFOL 40 ML (07:46)
[2018-01-24] MEDS ORDERED: FENTAnyl 50 MCG/ML VIAL (07:46)
[2018-01-24] MEDS ORDERED: OXYCODONE/ACETAMINOPHEN (5/325) TAB PO (08:00)
[2018-01-24] MEDS: INSULIN ASPART [NOVOLOG] 3 ML PEN SC ×4 (08:00→20:29)
[2018-01-24] MEDS ORDERED: EPHEDrine SULFATE 50 MG/5 ML SYG IV (08:00)
[2018-01-24] MEDS ORDERED: METOCLOPRAMIDE 10 MG INJ IV (08:00)
[2018-01-24] MEDS ORDERED: HYDROmorphONE 1 MG/5 ML IV SYRINGE IV ×3 (08:00)
[2018-01-24] MEDS ORDERED: ONDANSETRON 4 MG INJ IV (08:00)
[2018-01-24] MEDS: SEVELAMER CARBONATE 800 MG TABLET PO ×4 (08:00→17:51)
[2018-01-24] MEDS ORDERED: MEPERIDINE 25 MG INJ IV (08:00)
[2018-01-24] MEDS ORDERED: hydrALAzine 20 MG INJ IV (08:00)
[2018-01-24] MEDS ORDERED: DIPHENHYDRAMINE 50 MG INJ IV (08:00)
[2018-01-24] MEDS ORDERED: FENTAnyl 50 MCG/ML VIAL IV ×3 (08:00)
[2018-01-24] MEDS ORDERED: LABETALOL HCL 20MG INJ IV (08:00)
[2018-01-24] MEDS ORDERED: PHENYLephrine (100 MCG/ML) 5ML SYG (08:17)
[2018-01-24] MEDS: BUPIVACAINE 0.5% (SDV) 30 ML INJ (08:26)
[2018-01-24] MEDS: LIDOCAINE 1%/EPI 30 ML INJ (08:26)
[2018-01-24] MEDS: POLYETHYLENE GLYCOL 17 GM PACKET PO (09:00)
[2018-01-24] MEDS ORDERED: HETASTARCH 6% NACL 500 ML (09:20)
[2018-01-24] MEDS ORDERED: ONDANSETRON 4 MG INJ (09:20)
[2018-01-24] MEDS ORDERED: METOCLOPRAMIDE 10 MG INJ (09:20)
[2018-01-24] MEDS: MULTIVIT/CA CARB/B CMPLX/FA TAB PO (10:02)
[2018-01-24] MEDS: METOPROLOL 25 MG TAB PO ×2 (10:02→20:28)
[2018-01-24] MEDS: LABETALOL 100 MG TAB PO (10:02)
[2018-01-24] MEDS: AMLODIPINE 10 MG TAB PO (10:03)
[2018-01-24] MEDS: LISINOPRIL 10 MG TAB PO (10:03)
[2018-01-24] MEDS: morphine 2 MG INJ IV (20:28)
[2018-01-25] MEDS: ACCU-CHEK XX (02:00)
[2018-01-25 05:58] LABS: ADD MAN DIFF? NO
[2018-01-25 06:01] LABS: WHITE BLOOD COUNT 6.5 10^3/ul (4.8-10.8)
[2018-01-25 06:01] LABS: BASOPHIL # 0.1 10^3/ul (0.0-0.1); BASOPHILS % 0.8 % (0.0-2.0); EOSINOPHILS # 0.3 10^3/ul (0.0-0.5); EOSINOPHILS % 4.5 % (0.0-7.0); HEMATOCRIT 34.1 % (42.0-52.0); HEMOGLOBIN 10.7 g/dl (14.0-18.0); LYMPHOCYTES # 1.5 10^3/ul (0.8-2.9); LYMPHOCYTES % 23.2 % (15.0-51.0); MEAN CORPUSCULAR HEMOGLOBIN 27.2 pg (29.0-33.0); MEAN CORPUSCULAR HGB CONC 31.4 g/dl (32.0-37.0); MEAN CORPUSCULAR VOLUME 86.5 fl (82.0-101.0); MEAN PLATELET VOLUME 9.8 fl (7.4-10.4); MONOCYTE # 0.8 10^3/ul (0.3-0.9); MONOCYTES % 12.1 % (0.0-11.0); NEUTROPHIL # 3.8 10^3/ul (1.6-7.5); NEUTROPHILS % 59.2 % (39.0-77.0); PLATELET COUNT 170 10^3/UL (140-415); RED BLOOD COUNT 3.94 10^6/ul (4.70-6.10); RED CELL DISTRIBUTION WIDTH 17.2 % (11.5-14.5)
[2018-01-25 06:26] LABS: ANION GAP 14 (8-16); BLOOD UREA NITROGEN 61 mg/dl (7-20); CALCIUM 9.9 mg/dl (8.4-10.2); CARBON DIOXIDE 27 mmol/L (21-31); CHLORIDE 99 mmol/L (97-110); CREATININE 8.03 mg/dl (0.61-1.24); GLUCOSE 89 mg/dl (70-220); MAGNESIUM 3.1 mg/dl (1.7-2.5); PHOSPHORUS 4.2 mg/dl (2.5-4.9); SODIUM 134 mmol/L (135-144)
[2018-01-25 06:29] LABS: POTASSIUM 6.1 mmol/L (3.5-5.1)
[2018-01-25] MEDS: INSULIN ASPART [NOVOLOG] 3 ML PEN SC ×4 (08:00→20:49)
[2018-01-25] MEDS: SEVELAMER CARBONATE 800 MG TABLET PO ×3 (08:31→17:12)
[2018-01-25] MEDS: LISINOPRIL 10 MG TAB PO (08:32)
[2018-01-25] MEDS: POLYETHYLENE GLYCOL 17 GM PACKET PO (08:33)
[2018-01-25] MEDS: METOPROLOL 25 MG TAB PO ×2 (08:33→20:49)
[2018-01-25] MEDS: MULTIVIT/CA CARB/B CMPLX/FA TAB PO (08:34)
[2018-01-25] MEDS: AMLODIPINE 10 MG TAB PO (08:34)
[2018-01-25] MEDS: LABETALOL 100 MG TAB PO (08:34)
[2018-01-25] MEDS: morphine 2 MG INJ IV ×2 (09:06→20:51)
[2018-01-26] MEDS: morphine 2 MG INJ IV ×2 (01:05→09:48)
[2018-01-26] MEDS: ACCU-CHEK XX (02:00)
[2018-01-26] MEDS: INSULIN ASPART [NOVOLOG] 3 ML PEN SC ×3 (07:52→17:03)
[2018-01-26] MEDS: POLYETHYLENE GLYCOL 17 GM PACKET PO (08:31)
[2018-01-26] MEDS: METOPROLOL 25 MG TAB PO (08:31)
[2018-01-26] MEDS: LABETALOL 100 MG TAB PO (08:32)
[2018-01-26] MEDS: SEVELAMER CARBONATE 800 MG TABLET PO ×3 (08:32→17:03)
[2018-01-26] MEDS: MULTIVIT/CA CARB/B CMPLX/FA TAB PO (08:32)
[2018-01-26] MEDS: AMLODIPINE 10 MG TAB PO (08:32)
[2018-01-26] MEDS: LISINOPRIL 10 MG TAB PO (08:32)
[2018-01-26 10:29] LABS: ANION GAP 14 (8-16); BLOOD UREA NITROGEN 46 mg/dl (7-20); CALCIUM 10.4 mg/dl (8.4-10.2); CARBON DIOXIDE 27 mmol/L (21-31); CHLORIDE 100 mmol/L (97-110); CREATININE 6.49 mg/dl (0.61-1.24); GLUCOSE 106 mg/dl (70-220); POTASSIUM 5.6 mmol/L (3.5-5.1); SODIUM 135 mmol/L (135-144)
== END 2018-01-26 21:10 | disposition home or self-care (01) | DRG 515 ==
LOC: FTE 09:37 → MS4 14:21
PROC: 0QS03ZZ Reposition Lumbar Vertebra, Percutaneous Approach (ICD-10-PCS; principal; 2018-01-24 07:30)
PROC: 0QU03JZ Supplement Lumbar Vertebra with Synthetic Substitute, Percutaneous Approach (ICD-10-PCS; 2018-01-24 07:30)
PROC: 5A1D70Z Performance of Urinary Filtration, Intermittent, Less than 6 Hours Per Day (ICD-10-PCS; 2018-01-24 07:52)
PROC: 5A1D70Z Performance of Urinary Filtration, Intermittent, Less than 6 Hours Per Day (ICD-10-PCS; 2018-01-24 07:52)
PROC: 5A1D70Z Performance of Urinary Filtration, Intermittent, Less than 6 Hours Per Day (ICD-10-PCS; 2018-01-24 07:52)
PROC: 5A1D70Z Performance of Urinary Filtration, Intermittent, Less than 6 Hours Per Day (ICD-10-PCS; 2018-01-24 07:52)
PROC: 5A1D70Z Performance of Urinary Filtration, Intermittent, Less than 6 Hours Per Day (ICD-10-PCS; 2018-01-24 07:52)
DX: S32.020A Wedge compression fracture of second lumbar vertebra, initial encounter for closed fracture (principal); N18.6 End stage renal disease; I13.2 Hypertensive heart and chronic kidney disease with heart failure and with stage 5 chronic kidney disease, or end stage renal disease; M84.471A Pathological fracture, right ankle, initial encounter for fracture; M84.48XA Pathological fracture, other site, initial encounter for fracture; M84.459A Pathological fracture, hip, unspecified, initial encounter for fracture; E11.22 Type 2 diabetes mellitus with diabetic chronic kidney disease; E87.5 Hyperkalemia; I50.9 Heart failure, unspecified; I73.9 Peripheral vascular disease, unspecified; W19.XXXA Unspecified fall, initial encounter; I25.10 Atherosclerotic heart disease of native coronary artery without angina pectoris; D63.1 Anemia in chronic kidney disease; G89.4 Chronic pain syndrome; Z79.4 Long term (current) use of insulin; Z99.2 Dependence on renal dialysis; Z91.15 Patient's noncompliance with renal dialysis; Z89.422 Acquired absence of other left toe(s)
CPT/HCPCS: 72100; 72114; 72146; 72148; 80048; 80053; 82962; 83036; 83735; 84100; 85025; 85610; 85730; 86706; 87340; 90935; 93005; 96372; 96374; 96375; 97110; 97116; 97163; 99291-25; G0378

== ENCOUNTER 2019-03-04 14:29 | Emergency (ER) | payer MEDICARE, OTHER ==
[2019-03-04] MEDS: ONDANSETRON (ODT) 4 MG TAB ODT (15:39)
[2019-03-04] MEDS: traMADol 50 MG TAB PO (15:39)
== END 2019-03-04 17:01 | disposition home or self-care (01) ==
LOC: E/R 14:29
DX: S79.912A Unspecified injury of left hip, initial encounter (principal); I13.2 Hypertensive heart and chronic kidney disease with heart failure and with stage 5 chronic kidney disease, or end stage renal disease; I50.9 Heart failure, unspecified; N18.6 End stage renal disease; F17.210 Nicotine dependence, cigarettes, uncomplicated; W01.0XXA Fall on same level from slipping, tripping and stumbling without subsequent striking against object, initial encounter; Y92.9 Unspecified place or not applicable; Z99.2 Dependence on renal dialysis
CPT/HCPCS: 72192; 73700; 99284-25